=== PATIENT | female | born 1995 | race Caucasian/White ===

== ENCOUNTER 2017-06-20 17:49 | Emergency (ER) | payer SELFPAY ==
[2017-06-20 18:14] VITALS: BP 121/86
--- NOTE | 2017-06-20 18:18 | UC ---
Lower Extremity/Ankle HPI - HPI Summary HPI Summary: 21 YEAR OLD FEMALE PRESENTS WITH COMPLAINS OF LEFT ANKLE PAIN. - History of Current Complaint Chief Complaint: UCLowerExtremity Stated Complaint: ANKLE INJURY Time Seen by Provider: 06/20/17 18:16 Hx Obtained From: Patient Hx Last Menstrual Period: 06/12/17 Onset/Duration: Sudden Onset Severity Initially: Moderate Severity Currently: Moderate Pain Scale Used: 0-10 Numeric - 5 Aggravating Factor(s): Standing, Ambulation Alleviating Factor(s): Rest, Elevation - Allergies/Home Medications Allergies/Adverse Reactions: Allergies Allergy/AdvReac Type Severity Reaction Status Date / Time No Known Allergies Allergy Verified 12/24/15 19:45 Home Medications: Home Medications Progesterone Only Pill 06/20/17 [History] PMH/Surg Hx/FS Hx/Imm Hx Previously Healthy: Yes - Surgical History Surgical History: Yes Surgery Procedure, Year, and Place: WISDOM TEETH - Family History Known Family History: Positive: Other - NONCONTIBUTORY - Social History Alcohol Use: None Substance Use Type: None Smoking Status (MU): Never Smoked Tobacco Review of Systems Constitutional: Negative Skin: Negative Eyes: Negative ENT: Negative Respiratory: Negative Cardiovascular: Negative Gastrointestinal: Negative Genitourinary: Negative Motor: Negative Neurovascular: Negative Musculoskeletal: Myalgia, Other: - LEFT ANKLE PAIN Neurological: Negative Psychological: Negative All Other Systems Reviewed And Are Negative: Yes Physical Exam Triage Information Reviewed: Yes Vital Signs: Initial Vital Signs Temp 36.9 C 06/20/17 18:11 Pulse 68 06/20/17 18:11 Resp 18 06/20/17 18:11 BP 121/86 06/20/17 18:11 Pulse Ox 100 06/20/17 18:11 Vital Signs Reviewed: Yes Eye Exam: Normal ENT Exam: Normal Dental Exam: Normal Neck exam: Normal Neck: Positive: 1 Respiratory Exam: Normal Cardiovascular Exam: Normal Abdominal Exam: Normal Musculoskeletal: Positive: Other: - LEFT ANKLE SPRAIN Neurological Exam: Normal Psychological Exam: Normal Skin Exam: Normal Lower Extremity Course/Dx - Differential Dx/Diagnosis Provider Diagnoses: LEFT ANKLE SPRAIN Discharge - Discharge Plan Condition: Stable Disposition: HOME Prescriptions: Ibuprofen TAB* [Motrin TAB* 800 MG] 800 mg PO Q6H #30 tab Patient Education Materials: Ankle Sprain (ED) Referrals: Brandon Roche MD [Medical Doctor] - Kourtney Motley MD [Primary Care Provider] -
--- NOTE | 2017-06-20 18:47 | RAD ---
Indication: Left ankle injury after fall. 3 views of left ankle demonstrates no fracture. No other bone or joint abnormality is noted. IMPRESSION: No fracture of the left ankle is noted.
== END 2017-06-20 19:10 | disposition home or self-care (01) ==
LOC: UCEAST 17:49
DX: S93.402A Sprain of unspecified ligament of left ankle, initial encounter (principal); X58.XXXA Exposure to other specified factors, initial encounter; Y92.9 Unspecified place or not applicable
CPT/HCPCS: 99213; G0463

== ENCOUNTER 2019-02-18 17:52 | Emergency (ER) | payer OTHER ==
--- NOTE | 2019-02-18 17:54 | UC ---
Lower Extremity/Ankle HPI - HPI Summary HPI Summary: 23 yo female presents with left leg pain. She tells me that on 02/14 she was sitting with the back of her leg compressed against the front of a chair. When she went to stand she had pain in the area. She had this same thing happen 3 years ago. She has had no pain since. She is concerned about a DVT. She has had no recent travel, SOB, chest pain, or hx of blood clots. - History of Current Complaint Stated Complaint: LEG PAIN Time Seen by Provider: 02/18/19 17:54 Hx Obtained From: Patient Hx Last Menstrual Period: 06/12/17 Severity Initially: Moderate Severity Currently: Mild Pain Intensity: 1 Pain Scale Used: 0-10 Numeric Able to Bear Weight: Yes - Allergies/Home Medications Allergies/Adverse Reactions: Allergies Allergy/AdvReac Type Severity Reaction Status Date / Time bacitracin Allergy Hives Verified 02/18/19 18:02 [From Neosporin Plus] lidocaine Allergy Hives Verified 02/18/19 18:02 [From Neosporin Plus] neomycin Allergy Hives Verified 02/18/19 18:02 [From Neosporin Plus] polymyxin B Allergy Hives Verified 02/18/19 18:02 [From Neosporin Plus] pramoxine Allergy Hives Verified 02/18/19 18:02 [From Neosporin Plus] antibiotic creams Allergy Hives Uncoded 02/18/19 18:02 environmental Allergy Congestion Uncoded 02/18/19 18:02 Home Medications: Home Medications Control Pill 1 tab PO DAILY 02/18/19 [History Confirmed 02/18/19] Cetirizine HCl [Zyrtec] 1 tab PO DAILY 02/18/19 [History Confirmed 02/18/19] PMH/Surg Hx/FS Hx/Imm Hx - Additional Past Medical History Additional PMH: None - Surgical History Surgical History: Yes Surgery Procedure, Year, and Place: WISDOM TEETH - Family History Known Family History: Positive: Other - NONCONTIBUTORY - Social History Occupation: Employed Full-time Lives: With Family Alcohol Use: None Substance Use Type: None Smoking Status (MU): Never Smoked Tobacco Review of Systems All Other Systems Reviewed And Are Negative: Yes Constitutional: Positive: Negative Skin: Positive: Negative Respiratory: Positive: Negative Cardiovascular: Positive: Negative Neurovascular: Positive: Negative Musculoskeletal: Positive: Other: - Left calf pain Neurological: Positive: Negative Psychological: Positive: Negative Physical Exam - Summary Physical Exam Summary: GENERAL: NAD. WDWN. No pain distress. SKIN: No rashes, sores, lesions, or open wounds. CHEST: No accessory muscle use. Breathing comfortably and in no distress. CV: Pulses intact PT and DP. Cap refill <2seconds MSK: LEFT CALF: Varicose veins presents at distal thigh and throughout calf. NTTP. No nodule appreciated. FROM at left knee and ankle. Strength 5/5. No edema or obvious bony deformities. Negative Homans NEURO: Alert. Sensations intact and symmetric B/L LEs PSYCH: Age appropriate behavior. Triage Information Reviewed: Yes Vital Signs: Vital Signs: Temp Pulse Resp BP Pulse Ox 99.3 F 98 18 135/79 99 02/18/19 17:56 02/18/19 17:56 02/18/19 17:56 02/18/19 17:56 02/18/19 17:56 Vital Signs Reviewed: Yes Lower Extremity Course/Dx - Course Course Of Treatment: US:IMPRESSION: No acute findings. No evidence of deep vein thrombosis. I suspect her pain was due to the way she was sitting, but she does have some varicose veins in the left leg. She has an appt in 2 days with her PCP and prefers to discuss further management with them at this time. Advised to elevate her leg and avoid standing for long periods of time as this may make symptoms worse. - Differential Dx/Diagnosis Provider Diagnosis: Pain of left calf, Varicose veins of legs Discharge - Sign-Out/Discharge Documenting (check all that apply): Patient Departure All imaging exams completed and their final reports reviewed: Yes - Discharge Plan Condition: Stable Disposition: HOME Referrals: Kourtney Motley MD [Primary Care Provider] - Additional Instructions: If you develop a fever, shortness of breath, chest pain, new or worsening symptoms - please call your PCP or go to the ED immediately. Rest and elevate your leg intermittently throughout the day to reduce pain and swelling. Please keep your follow up with your primary doctor on Monday for a recheck and further evaluation and treatment. - Billing Disposition and Condition Condition: STABLE Disposition: Home - Attestation Statements Provider Attestation: I was available for consult. This patient was seen by the [facility]. The patient was not presented to, seen by, or examined by me. -[place]
[2019-02-18 18:01] VITALS: BP 135/79
== END 2019-02-18 19:24 | disposition home or self-care (01) ==
LOC: UCEAST 17:52
DX: I83.812 Varicose veins of left lower extremity with pain (principal)
CPT/HCPCS: 99211; G0463